=== PATIENT | female | born 1935 | race Caucasian/White ===

== ENCOUNTER 2019-12-10 19:23 | Inpatient (IN) ==
[2019-12-10] MEDS ORDERED: LACTATED RINGERS 1,000 ML IV ONE (19:59)
--- NOTE | 2019-12-10 20:02 | Emergency Department Note ---
HPI General Chief complaint: Shortness of Breath/Dyspnea Stated complaint: fever, SOB Time Seen by Provider: 12/10/19 19:48 Source: patient and RN notes reviewed Mode of arrival: EMS Limitations: no limitations History of Present Illness HPI Narrative: Narrative: This patient has been ill since Monday with fever and chills. She does have a markedly abnormal urine dip in the ER. She has a chronic cough and says her cough and shortness of breath is no different than her baseline and usual. No abdominal pain or chest pain. She does have back pain down low in her back but not over her kidneys. Onset (ago): day(s) Related Data Home Medications Medication Instructions Recorded Confirmed ferrous sulfate 324 mg (65 mg PO 100 Days #100 02/22/16 01/16/19 iron) tablet,delayed release acyclovir 400 mg tablet 400 mg PO BID 12/09/16 01/18/19 bortezomib 3.5 mg solution for See Rx Instructions SUB-Q .COMPLEX 12/09/16 01/18/19 injection carfilzomib 1 dose IV MONTHLY 01/16/19 01/18/19 cholecalciferol (vitamin D3) 1 dose PO DAILY 01/16/19 01/18/19 coenzyme Q10 100 mg capsule 100 mg PO QDAY 01/16/19 01/18/19 cranberry conc-ascorbic acid 1 dose PO DAILYP PRN 01/16/19 01/18/19 d-mannose 1 each PO DAILY 01/16/19 01/18/19 dexamethasone 4 mg tablet 10 mg PO QDAY tab 01/16/19 01/18/19 docusate sodium 100 mg capsule 200 mg PO QDAY 01/16/19 01/18/19 magnesium 200 mg tablet 400 mg PO QDAY tab 01/16/19 01/18/19 multivitamin with minerals 2 tab PO QDAY tab 01/16/19 01/18/19 polyethylene glycol 3350 17 8.5 g PO QDAY PRN 01/16/19 01/18/19 gram/dose oral powder pravastatin 40 mg tablet 40 mg PO QDAY 01/16/19 01/18/19 prochlorperazine maleate 10 mg 10 mg PO QDAY PRN tab 01/16/19 01/18/19 tablet simethicone 1 dose PO DAILYP PRN 01/16/19 01/18/19 zoledronic [id number] 1 dose IV Q3M 01/16/19 01/18/19 Spirometry 1 dose MISC DAILY 01/18/19 01/18/19 nebulizers 01/18/19 01/18/19 Previous Rx's Medication Instructions Recorded potassium chloride 10 mEq 20 meq PO QDAY #60 cap 06/25/15 capsule,extended release trazodone 50 mg tablet 25 mg PO QHS PRN #30 tab 07/10/15 pantoprazole 40 mg tablet,delayed 40 mg PO QDAY #90 tab 01/02/17 release mupirocin 2 % topical ointment 1 applic TOPICAL QDAY #15 g 02/22/17 ipratropium 0.5 mg-albuterol 3 mg 3 ml INHALATION Q6H PRN #30 vial 02/28/17 (2.5 mg base)/3 mL nebulization soln amlodipine 10 mg tablet 10 mg PO QDAY #30 tab 03/27/17 losartan 100 mg tablet 100 mg PO DAILY #90 tab 11/13/17 lorazepam 0.5 mg tablet 0.5 mg PO QID PRN #180 tab 11/17/17 levothyroxine 50 mcg tablet 50 mcg PO QDAY #90 tab 12/15/17 [id number]-LX-ebpirvmtzxb 2.5 5 ml PO TID #180 ml 01/01/18 mg-5 mg-100 mg/5 mL oral liquid sulfamethoxazole 800 1 tab PO BID #20 tab 01/01/18 mg-trimethoprim 160 mg tablet fentanyl 12 mcg/hr transdermal 1 patch TRANSDERMA Q48H #15 patch 02/21/18 patch metronidazole 500 mg PO TID #30 tab 11/21/18 doxycycline hyclate 100 mg PO BID #14 cap 03/10/19 oseltamivir 75 mg PO BID #10 cap 03/10/19 prednisone 20 mg PO DAILY #23 tab 03/10/19 Allergies Allergy/AdvReac Type Severity Reaction Status Date / Time cefdinir Allergy Intermediate nausea Verified 01/18/19 12:53 sulfamethoxazole Allergy Intermediate nausea Verified 01/18/19 12:53 [From Bactrim] trimethoprim [From Bactrim] Allergy Intermediate nausea Verified 01/18/19 12:53 Nortriptyline AdvReac Severe Fatigued Verified 01/18/19 12:53 pantoprazole AdvReac Unknown swelling Verified 01/18/19 12:53 Review of Systems ROS ROS Narrative: Narrative: All systems ED: reviewed and negative except as stated. Constitutional: Reports fever and chills Cardiovascular: Denies chest pain Respiratory: Denies shortness of breath and cough Gastrointestinal: Denies abdominal pain and nausea PFSH Narrative Patient History Narrative: Narrative: Medical/Surgical/Family History All Active Problems (Updated 12/10/19 @ 23:15 by Lino Mcdaniel MD) Acute exacerbation of chronic obstructive airways disease (Acute) Influenza (Acute) Urinary tract infection (Acute) Sepsis (Acute) Macular retinal edema (Chronic) Excess skin of eyelid (Chronic) Scoliosis (Chronic) Disorder of bladder (Chronic) Lower gastrointestinal hemorrhage (Acute) C. 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 Moris Jamison Disorder of bladder (Chronic) due to female genital prolapse Excess skin of eyelid (Chronic) GI bleed (Resolved) Hyperlipidemia (Chronic) Hypertension, essential (Chronic) Hypothyroidism (acquired) (Chronic) Macular puckering of retina (Chronic) 10/11/13 Dr. 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 Moris Jamison Ptosis of eyelid (Resolved) 10/11/13- Dr. 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 Moris Jamison Surgical History History of esophagogastroduodenoscopy (EGD) (Chronic 02/02/17) 12/01/16 Hx of cataract surgery (Resolved) Hx of hysterectomy (Resolved) Family History (Updated 01/16/19 @ 11:34 by Kim Hernandez, RN) Father Acute myocardial infarction Mother Malignant neoplasm of lung Other Diabetes mellitus HTN (hypertension) Social History Smoking Status: Never smoker Alcohol Intake Frequency: holiday/special occasion only Exam Narrative Narrative: Narrative: General Limitations: no limitations Head Head: Present atraumatic, normocephalic and normal inspection Eye Eye: Present normal appearance and EOMI; Absent scleral icterus and conjunctival injection ENT ENT: Present normal exam, normal oropharynx and mucous membranes dry Neck Neck: Present normal inspection and full ROM Chest Chest: Present normal inspection and symmetric chest wall rise Respiratory Respiratory: Present normal lung sounds bilaterally; Absent respiratory distress, rales/crackles and wheezes Cardiovascular Cardiovascular: Present regular rate, normal rhythm and normal heart sounds Adbominal Abdominal: Absent distention and tenderness Extremities Extremities: Present normal inspection and full ROM; Absent pedal edema and pretibial edema Back Back: Present L-S tenderness; Absent CVA tenderness (R) and CVA tenderness (L) Neurological Neurological: Present alert Psychiatric Psychiatric: Present normal affect Skin Skin: Present warm (WNL) and dry; Absent diaphoresis Course Vital Signs Vital signs: Vital Signs Temperature 101.5 F H 12/10/19 19:24 Pulse Rate 139 H 12/10/19 19:24 Respiratory Rate 35 H 12/10/19 19:24 Blood Pressure 159/100 12/10/19 19:24 Pulse Oximetry (%) 92 12/10/19 19:24 Temperature 103.5 F H 12/10/19 21:36 Pulse Rate 96 H 12/10/19 22:45 Respiratory Rate 31 H 12/10/19 22:45 Blood Pressure 107/57 12/10/19 22:45 Pulse Oximetry (%) 89 L 12/10/19 22:45 [facility] MDM Narrative Medical decision making narrative: Narrative: Lab Data Lab results reviewed: Yes I reviewed the patient's lab results. Lab results narrative: Patient has evidence of urosepsis with urinary tract infection and lactic acid of 3.1 Result diagrams: 12/10/19 20:32 12/10/19 20:32 Labs: Lab Results 12/10/19 12/10/19 12/10/19 Range/Units 20:32 20:32 20:32 WBC 3.3 L (4.5-11.0) K/mcL RBC 4.11 (4.00-5.20) M/mcL Hgb 13.6 (12.0-15.0) g/dL Hct 40.5 (36.0-48.0) % MCV 98.5 (80.0-100.0) fL MCH 33.1 (26.0-34.0) pg MCHC 33.6 (31.0-36.0) g/dL RDW 13.0 (11.5-14.5) % Plt Count 117 L (140-440) K/mcL MPV 9.7 (7.4-10.4) fL Neut % (Auto) 96.3 H (38.0-78.0) % Lymph % (Auto) 3.4 L (15.0-49.0) % Bates % (Auto) 0.3 L (1.0-12.0) % Eos % (Auto) 0 (0.0-7.0) % Baso % (Auto) 0 (0.0-2.0) % Lymph # (Auto) 0.11 L (1.50-4.80) K/mcL Bates # (Auto) 0.01 L (0.10-0.90) K/mcL Eos # (Auto) 0 (0.00-0.70) K/mcL Baso # (Auto) 0 (0.00-0.20) K/mcL VBG Lactic Acid 3.1 H (0.5-2.0) mmol/L Sodium 132 L (133-145) mmol/L Potassium 3.5 (3.3-5.1) mmol/L Chloride 98 (96-108) mmol/L Carbon Dioxide 21 L (22-30) mmol/L Anion Gap 13.0 (8.0-16.0) BUN 11 (8-23) mg/dL Creatinine 0.9 (0.6-1.1) mg/dL GFR Calculation 59 Glucose 107 H (70-105) mg/dL Calcium 8.9 (8.6-10.4) mg/dL Total Bilirubin 1.0 (0.1-1.0) mg/dL AST 27 (<32) U/L ALT 19 (<40) U/L Alkaline Phosphatase 105 (39-117) U/L Total Protein 6.7 (5.9-8.4) gm/dL Albumin 4.1 (3.2-5.2) gm/dL Globulin 2.6 (2.2-3.7) gm/dL Albumin/Globulin Ratio 1.6 (1.0-2.3) Urine Color Urine Appearance (Clear) Urine pH (5.0-9.0) Ur Specific [place] (1.000-1.035) Urine Protein (Negative) mg/dL Urine Glucose (UA) (Negative) mg/dL Urine Ketones (Negative) mg/dL Urine Occult Blood (Negative) mg/dL Urine Nitrate (Negative) Urine Bilirubin (Negative) mg/dL Urine Urobilinogen mg/dL Ur Leukocyte Esterase (Negative) /ug Urine RBC (0-1) /hpf Urine WBC (0-4) /hpf Ur Squamous Epith Cells (0-4) /hpf Urine Bacteria (0) /hpf Urine Mucus (None) /hpf Ur Culture Indicated? Abs Neutrophil Control 3.15 (1.80-8.00) K/mcL 12/10/19 Range/Units 21:27 WBC (4.5-11.0) K/mcL RBC (4.00-5.20) M/mcL Hgb (12.0-15.0) g/dL Hct (36.0-48.0) % MCV (80.0-100.0) fL MCH (26.0-34.0) pg MCHC (31.0-36.0) g/dL RDW (11.5-14.5) % Plt Count (140-440) K/mcL MPV (7.4-10.4) fL Neut % (Auto) (38.0-78.0) % Lymph % (Auto) (15.0-49.0) % Bates % (Auto) (1.0-12.0) % Eos % (Auto) (0.0-7.0) % Baso % (Auto) (0.0-2.0) % Lymph # (Auto) (1.50-4.80) K/mcL Bates # (Auto) (0.10-0.90) K/mcL Eos # (Auto) (0.00-0.70) K/mcL Baso # (Auto) (0.00-0.20) K/mcL VBG Lactic Acid (0.5-2.0) mmol/L Sodium (133-145) mmol/L Potassium (3.3-5.1) mmol/L Chloride (96-108) mmol/L Carbon Dioxide (22-30) mmol/L Anion Gap (8.0-16.0) BUN (8-23) mg/dL Creatinine (0.6-1.1) mg/dL GFR Calculation Glucose (70-105) mg/dL Calcium (8.6-10.4) mg/dL Total Bilirubin (0.1-1.0) mg/dL AST (<32) U/L ALT (<40) U/L Alkaline Phosphatase (39-117) U/L Total Protein (5.9-8.4) gm/dL Albumin (3.2-5.2) gm/dL Globulin (2.2-3.7) gm/dL Albumin/Globulin Ratio (1.0-2.3) Urine Color Yellow Urine Appearance Hazy A (Clear) Urine pH 7.0 (5.0-9.0) Ur Specific [place] 1.011 (1.000-1.035) Urine Protein 30 A (Negative) mg/dL Urine Glucose (UA) Negative (Negative) mg/dL Urine Ketones Negative (Negative) mg/dL Urine Occult Blood 0.20 (Negative) mg/dL Urine Nitrate Negative (Negative) Urine Bilirubin Negative (Negative) mg/dL Urine Urobilinogen Negative mg/dL Ur Leukocyte Esterase 500 A (Negative) /ug Urine RBC 9 H (0-1) /hpf Urine WBC 99 H (0-4) /hpf Ur Squamous Epith Cells < 1 (0-4) /hpf Urine Bacteria Few A (0) /hpf Urine Mucus Few A (None) /hpf Ur Culture Indicated? yes Abs Neutrophil Control (1.80-8.00) K/mcL Radiology Data Radiology results reviewed: Yes I reviewed the patient's radiology results. Radiology results narrative: There may be an infiltrate left lower lobe Discharge Plan Patient/Caregiver Discharge Instructions Pt seen by [employer]PER[facility]/PA only: No Clinical Impression: Urinary tract infection, Sepsis Patient Disposition: Xfer As Inpt ([facility]) Follow up with: Omer Malagon MD [Primary Care Provider] - Prescriptions: No Action potassium chloride 10 mEq capsule, extended release 20 meq PO QDAY Qty: 60 RF: 12 pantoprazole 40 mg tablet,delayed release (DR/EC) 40 mg PO QDAY Qty: 90 RF: 3 losartan 100 mg tablet 100 mg PO DAILY Qty: 90 RF: 3 lorazepam 0.5 mg tablet 0.5 mg PO QID PRN (Reason: anxiety) Qty: 180 RF: 5 levothyroxine 50 mcg tablet 50 mcg PO QDAY Qty: 90 RF: 3 fentanyl 12 mcg/hr patch 72 hour 1 patch TRANSDERMA Q48H Qty: 15 RF: 0 trazodone 50 mg tablet 25 mg PO QHS PRN (Reason: insomnia) Qty: 30 RF: 2 ferrous sulfate 324 mg (65 mg iron) tablet,delayed release (DR/EC) PO 100 Days Qty: 100 RF: 0 bortezomib 3.5 mg recon soln See Rx Instructions SUB-Q .COMPLEX RF: 0 acyclovir 400 mg tablet 400 mg PO BID RF: 0 dexamethasone 4 mg tablet 10 mg PO QDAY RF: 0 amlodipine 10 mg tablet 10 mg PO QDAY Qty: 30 RF: 11 mupirocin 2 % ointment 1 applic TOPICAL QDAY Qty: 15 RF: 0 ipratropium-albuterol 0.5 mg-3 mg(2.5 mg base)/3 mL solution for nebulization 3 ml INHALATION Q6H PRN (Reason: wheezing) Qty: 30 RF: 2 sulfamethoxazole-trimethoprim 800-160 mg tablet 1 tab PO BID Qty: 20 RF: 0 [id number]-[id number] [Mucinex Fast-Max Congest-Cough] 2.5-5-100 mg/5 mL liquid 5 ml PO TID Qty: 180 RF: 0 metronidazole 500 MG tablet 500 mg PO TID Qty: 30 RF: 0 (DME) nebulizers 1 EACH misc 0 dose .Route .MEDSUPPLY RF: 0 Spirometry 1 dose MISC DAILY RF: 0 doxycycline hyclate 100 MG capsule 100 mg PO BID Qty: 14 RF: 0 oseltamivir 75 MG capsule 75 mg PO BID Qty: 10 RF: 0 prednisone 20 MG tablet 20 mg PO DAILY Qty: 23 RF: 0 prochlorperazine maleate 10 mg tablet 10 mg PO QDAY PRN (Reason: Nausea) RF: 0 carfilzomib 1 dose IV MONTHLY RF: 0 zoledronic djtm-ejmslqhv-dmoku 1 dose IV Q3M RF: 0 pravastatin 40 mg tablet 40 mg PO QDAY RF: 0 coenzyme Q10 [CoQ-10] 100 mg capsule 100 mg PO QDAY RF: 0 docusate sodium [Stool Softener] 100 mg capsule 200 mg PO QDAY RF: 0 cholecalciferol (vitamin D3) 1 dose PO DAILY RF: 0 magnesium 200 mg tablet 400 mg PO QDAY RF: 0 multivitamin with minerals tablet 2 tab PO QDAY RF: 0 d-mannose powder 1 each PO DAILY RF: 0 cranberry conc-ascorbic acid 1 dose PO DAILYP PRN (Reason: Pain) RF: 0 polyethylene glycol 3350 [Miralax] 17 gram/dose powder 8.5 g PO QDAY PRN (Reason: Constipation) RF: 0 simethicone 1 dose PO DAILYP PRN (Reason: Abdominal Distention) RF: 0
[2019-12-10] MEDS ORDERED: cefTRIAXone 1 GM VIAL IV ONE (20:08)
[2019-12-10] MEDS ORDERED: ACETAMINOPHEN 325 MG TABLET PO ONE (20:08)
[2019-12-10 21:46] LABS: Basophils # (Auto) 0 K/mcL (0.00-0.20); Basophils % (Auto) 0 % (0.0-2.0); Eosinophils # (Auto) 0 K/mcL (0.00-0.70); Eosinophils % (Auto) 0 % (0.0-7.0); Hematocrit 40.5 % (36.0-48.0); Hemoglobin 13.6 g/dL (12.0-15.0); Lymphocytes # (Auto) 0.11 K/mcL (1.50-4.80); Lymphocytes % (Auto) 3.4 % (15.0-49.0); Mean Cell Volume 98.5 fL (80.0-100.0); Mean Corpuscular HGB Conc 33.6 g/dL (31.0-36.0); Mean Platelet Volume 9.7 fL (7.4-10.4); Monocytes # (Auto) 0.01 K/mcL (0.10-0.90); Monocytes % (Auto) 0.3 % (1.0-12.0); Neutrophils % (Auto) 96.3 % (38.0-78.0); Platelet Count 117 K/mcL (140-440); RBC 4.11 M/mcL (4.00-5.20); WBC 3.3 K/mcL (4.5-11.0)
[2019-12-10 21:57] LABS: Appearance,Urine HAZY (Clear); Bacteria,Urine FEW /hpf (0); Bilirubin,Urine Negative (Negative); Color,Urine YELLOW; Culture Indicated,Urine yes; Glucose,Urine (UA) Negative (Negative); Ketones,Urine Negative (Negative); Leukocyte Esterase,Urine 500 /ug (Negative); Mucus,Urine FEW /hpf; Nitrate,Urine Negative (Negative); Protein,Urine 30 mg/dL (Negative); Specific Gravity,Urine 1.011 (1.000-1.035); Urine RBC 9 /hpf (0-1); Urine Squamous Epithelial Cell < 1 /hpf (0-4); Urine WBC 99 /hpf (0-4); Urobilinogen,Urine Negative
[2019-12-10 22:02] LABS: ALT/SGPT 19 U/L (<40); AST/SGOT 27 U/L (<32); Albumin 4.1 gm/dL (3.2-5.2); Albumin/Globulin Ratio 1.6 (1.0-2.3); Alkaline Phosphatase 105 U/L (39-117); Blood Urea Nitrogen 11 mg/dL (8-23); Calcium 8.9 mg/dL (8.6-10.4); Carbon Dioxide 21 mmol/L (22-30); Chloride 98 mmol/L (96-108); Globulin 2.6 gm/dL (2.2-3.7); Glomerular Filtration Rate 59; Glucose 107 mg/dL (70-105)
[2019-12-10] MEDS ORDERED: LEVOFLOXACIN 750 MG/150 ML BAG IV ONE (23:08)
[2019-12-10] MEDS ORDERED: LACTATED RINGERS 1,000 ML IV SCH (23:15)
[2019-12-10] MEDS ORDERED: 0.9 % SODIUM CHLORIDE 250 ML IV SCH (23:45)
[2019-12-11] MEDS: NOREPINEPHRINE BITARTRATE 16 MG in 0.9 % SODIUM CHLORIDE 234 ML IV SCH (00:01)
[2019-12-11] MEDS: 0.9 % SODIUM CHLORIDE 250 ML IV SCH ×2 (00:40→12:40)
[2019-12-11] MEDS ORDERED: cefTRIAXone 1 GM VIAL IV SCH (07:45)
--- NOTE | 2019-12-11 07:45 | Internal Med History&Physical ---
HPI History of Present Illness Patient information: Note initiated : 12/11/19 at 7:39 am Service Date, if different from initiated Date: [] Patient: Daksha Rodriguez 84 y/o F admitted on 12/11/19 for fever, SOB. Chief Complaint: [] History of present illness: Ms. Rodriguez is a 84 year old F Patient presents to the ED with fever and chills. She does have a cough and shortness of breath but states this is chronic and stable. In the ED she evaluated she was hypotensive initially with a fever. Lactate. She is given IV fluids with resolution of her hypotension. Source appears to be tract with UTI. ?Pulm. Patient states Monday that she had fevers and chills. She called Monday morning to oncologist because she was supposed to get "chemo" for multiple myeloma and they decided to wait on her chemo that was scheduled for Monday. She felt better on Monday she felt tired and then in the afternoon she developed fevers and chills called the ambulance. In the ER she was evaluated and work-up was concerning for urinary tract infection with sepsis and she actually required levo fed. Chest x-ray bilateral infiltrates but she denies any cough above baseline. She says she has a chronic shortness of breath and cough but she says they are no different than usual. Feels tired and weak but otherwise no other complaints. Review of Systems: Positive as above. Denies headache/nausea/vomiting/chest or abdominal pain//maru rrhea. Remaining 10 point review of system reviewed negative PFSH PFSH All Active Problems (Updated 12/10/19 @ 23:15 by Lino Mcdaniel MD) Acute exacerbation of chronic obstructive airways disease (Acute) Influenza (Acute) Urinary tract infection (Acute) Sepsis (Acute) Macular retinal edema (Chronic) Excess skin of eyelid (Chronic) Scoliosis (Chronic) Disorder of bladder (Chronic) Lower gastrointestinal hemorrhage (Acute) C. 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 Moris Jamison Disorder of bladder (Chronic) due to female genital prolapse Excess skin of eyelid (Chronic) GI bleed (Resolved) Hyperlipidemia (Chronic) Hypertension, essential (Chronic) Hypothyroidism (acquired) (Chronic) Macular puckering of retina (Chronic) 10/11/13 Dr. 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 Moris Jamison Ptosis of eyelid (Resolved) 10/11/13- Dr. 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 Moris Jamison Surgical History History of esophagogastroduodenoscopy (EGD) (Chronic 02/02/17) 12/01/16 Hx of cataract surgery (Resolved) Hx of hysterectomy (Resolved) Family History (Updated 01/16/19 @ 11:34 by Kim Hernandez, RN) Father Acute myocardial infarction Mother Malignant neoplasm of lung Other Diabetes mellitus HTN (hypertension) Social History (Updated 01/16/19 @ 12:01 by Kj Estrella MD) household members: alone occupational status: unemployed smoking status: Never smoker alcohol intake frequency: holiday/special occasion only MEDS/ALLERGIES Home Medications and Allergies Home Medications Medication Instructions Recorded Confirmed Type potassium chloride 10 mEq 20 meq PO QDAY #60 cap 06/25/15 01/18/19 Rx capsule,extended release trazodone 50 mg tablet 25 mg PO QHS PRN #30 tab 07/10/15 01/18/19 Rx ferrous sulfate 324 mg (65 mg PO 100 Days #100 02/22/16 01/16/19 History iron) tablet,delayed release acyclovir 400 mg tablet 400 mg PO BID 12/09/16 01/18/19 History bortezomib 3.5 mg solution for See Rx Instructions SUB-Q .COMPLEX 12/09/16 01/18/19 History injection pantoprazole 40 mg tablet,delayed 40 mg PO QDAY #90 tab 01/02/17 01/18/19 Rx release mupirocin 2 % topical ointment 1 applic TOPICAL QDAY #15 g 02/22/17 01/18/19 Rx ipratropium 0.5 mg-albuterol 3 mg 3 ml INHALATION Q6H PRN #30 vial 02/28/17 01/18/19 Rx (2.5 mg base)/3 mL nebulization soln amlodipine 10 mg tablet 10 mg PO QDAY #30 tab 03/27/17 01/18/19 Rx losartan 100 mg tablet 100 mg PO DAILY #90 tab 11/13/17 01/18/19 Rx lorazepam 0.5 mg tablet 0.5 mg PO QID PRN #180 tab 11/17/17 01/18/19 Rx levothyroxine 50 mcg tablet 50 mcg PO QDAY #90 tab 12/15/17 01/18/19 Rx kpfyumoteyalp-RG-xbnxuuoeiww 2.5 5 ml PO TID #180 ml 01/01/18 01/18/19 Rx mg-5 mg-100 mg/5 mL oral liquid sulfamethoxazole 800 1 tab PO BID #20 tab 01/01/18 01/18/19 Rx mg-trimethoprim 160 mg tablet fentanyl 12 mcg/hr transdermal 1 patch TRANSDERMA Q48H #15 patch 02/21/18 01/18/19 Rx patch metronidazole 500 mg PO TID #30 tab 11/21/18 01/18/19 Rx carfilzomib 1 dose IV MONTHLY 01/16/19 01/18/19 History cholecalciferol (vitamin D3) 1 dose PO DAILY 01/16/19 01/18/19 History coenzyme Q10 100 mg capsule 100 mg PO QDAY 01/16/19 01/18/19 History cranberry conc-ascorbic acid 1 dose PO DAILYP PRN 01/16/19 01/18/19 History d-mannose 1 each PO DAILY 01/16/19 01/18/19 History dexamethasone 4 mg tablet 10 mg PO QDAY tab 01/16/19 01/18/19 History docusate sodium 100 mg capsule 200 mg PO QDAY 01/16/19 01/18/19 History magnesium 200 mg tablet 400 mg PO QDAY tab 01/16/19 01/18/19 History multivitamin with minerals 2 tab PO QDAY tab 01/16/19 01/18/19 History polyethylene glycol 3350 17 8.5 g PO QDAY PRN 01/16/19 01/18/19 History gram/dose oral powder pravastatin 40 mg tablet 40 mg PO QDAY 01/16/19 01/18/19 History prochlorperazine maleate 10 mg 10 mg PO QDAY PRN tab 01/16/19 01/18/19 History tablet simethicone 1 dose PO DAILYP PRN 01/16/19 01/18/19 History zoledronic hlsc-cpgjktnh-nfkga 1 dose IV Q3M 01/16/19 01/18/19 History Spirometry 1 dose MISC DAILY 01/18/19 01/18/19 History nebulizers 01/18/19 01/18/19 History doxycycline hyclate 100 mg PO BID #14 cap 03/10/19 Rx oseltamivir 75 mg PO BID #10 cap 03/10/19 Rx prednisone 20 mg PO DAILY #23 tab 03/10/19 Rx Allergies Allergy/AdvReac Type Severity Reaction Status Date / Time Nortriptyline AdvReac Severe Fatigued Verified 01/18/19 12:53 cefdinir AdvReac Mild nausea Verified 12/11/19 06:40 sulfamethoxazole AdvReac Mild nausea Verified 12/11/19 06:40 [From Bactrim] trimethoprim [From Bactrim] AdvReac Mild nausea Verified 12/11/19 06:40 pantoprazole AdvReac Unknown swelling Verified 01/18/19 12:53 EXAM Constitutional Vitals: Temp Pulse Resp BP Pulse Ox 98.7 F 87 23 H 138/77 95 12/11/19 04:01 12/11/19 04:10 12/11/19 04:10 12/11/19 04:01 12/11/19 04:10 Exam: General: Alert, Awake, No acute Distress Eyes/N/T: EOMI, PERRL, Head/Neck: neck supple, normocephalic atraumatic CV: RRR, No murmurs, normal s1/s2 Pulm: Clear b/l, no wheezing/rhonchi/rales Abd: soft, nontender, +BS x4 Ext: no clubbing/cyanosis/edema Neuro: Alert, no focal deficits, moves all extremities, CN 2-12 grossly intact, symmetrical strength b/l upper/lower, sensations intact b/l upper/lower Skin: warm/dry DATA Data Completed and Pending Labs: Labs from last 24 hours 12/11/19 12/11/19 12/10/19 04:39 04:39 21:27 WBC Pending RBC Pending Hgb Pending Hct Pending MCV Pending MCH Pending MCHC Pending RDW Pending Plt Count Pending MPV Pending Neut % (Auto) Pending Lymph % (Auto) [place] % (Auto) Eos % (Auto) Baso % (Auto) Lymph # (Auto) [place] # (Auto) Eos # (Auto) Baso # (Auto) VBG Lactic Acid Sodium Pending Potassium Pending Chloride Pending Carbon Dioxide Pending Anion Gap Pending BUN Pending Creatinine Pending GFR Calculation Pending Glucose Pending Uric Acid Pending Calcium Pending Phosphorus Pending Magnesium Pending Total Bilirubin Pending Direct Bilirubin Pending GGT Pending AST Pending ALT Pending Alkaline Phosphatase Pending Lactate Dehydrogenase Pending Total Protein Pending Albumin Pending Globulin Pending Albumin/Globulin Ratio Pending Triglycerides Pending Urine Color Yellow Urine Appearance Hazy A Urine pH 7.0 Ur Specific [place] 1.011 Urine Protein 30 A Urine Glucose (UA) Negative Urine Ketones Negative Urine Occult Blood 0.20 Urine Nitrate Negative Urine Bilirubin Negative Urine Urobilinogen Negative Ur Leukocyte Esterase 500 A Urine RBC 9 H Urine WBC 99 H Ur Squamous Epith Cells < 1 Urine Bacteria Few A Urine Mucus Few A Ur Culture Indicated? yes Abs Neutrophil Control 12/10/19 12/10/19 12/10/19 20:32 20:32 20:32 WBC 3.3 L RBC 4.11 Hgb 13.6 Hct 40.5 MCV 98.5 MCH 33.1 MCHC 33.6 RDW 13.0 Plt Count 117 L MPV 9.7 Neut % (Auto) 96.3 H Lymph % (Auto) 3.4 L [place] % (Auto) 0.3 L Eos % (Auto) 0 Baso % (Auto) 0 Lymph # (Auto) 0.11 L [place] # (Auto) 0.01 L Eos # (Auto) 0 Baso # (Auto) 0 VBG Lactic Acid 3.1 H Sodium 132 L Potassium 3.5 Chloride 98 Carbon Dioxide 21 L Anion Gap 13.0 BUN 11 Creatinine 0.9 GFR Calculation 59 Glucose 107 H Uric Acid Calcium 8.9 Phosphorus Magnesium Total Bilirubin 1.0 Direct Bilirubin GGT AST 27 ALT 19 Alkaline Phosphatase 105 Lactate Dehydrogenase Total Protein 6.7 Albumin 4.1 Globulin 2.6 Albumin/Globulin Ratio 1.6 Triglycerides Urine Color Urine Appearance Urine pH Ur Specific [place] Urine Protein Urine Glucose (UA) Urine Ketones Urine Occult Blood Urine Nitrate Urine Bilirubin Urine Urobilinogen Ur Leukocyte Esterase Urine RBC Urine WBC Ur Squamous Epith Cells Urine Bacteria Urine Mucus Ur Culture Indicated? 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 Perry on active therapy P: -IVF -Rocephin/azithro pending urine/blood cultures -IS -Clarify home medications -pT/OT -CM for placement -ppx: Lovenox/home PPI DNR Time Spent With Patient Time: Total time spent is greater than 50% in coordination of care (as documented) at patient's floor/unit and/or counseling patient: QUALITY VTE Deep Vein Thrombosis/Pulmonary Embolism Present on Admission: No
--- NOTE | 2019-12-11 07:57 | XRay Report ---
HISTORY: Fever and cough FINDINGS: Moderate generalized alveolar infiltrates are present throughout both lungs affecting the left side worse than right. This is superimposed upon underlying pulmonary fibrosis. Lung volumes are normal. No pleural effusion is present. The heart size is within upper limits of normal. Pulmonary vessels cannot be evaluated due to the infiltrates. There is a large air-filled retrocardiac hiatus hernia which has enlarged since 03/21/19. IMPRESSION: Widespread bilateral pneumonia. Superimposed pulmonary vascular congestion cannot be excluded. Interpreted and Authenticated by: Moris Maxwell 12/11/19
[2019-12-11] MEDS ORDERED: IPRATROPIUM/ALBUTEROL 3 ML AMPUL.NEB NEB PRN (08:27)
[2019-12-11] MEDS ORDERED: POTASSIUM CHLORIDE 40 MEQ in DEXTROSE 5% IN WATER 500 ML IV PRN (08:27)
[2019-12-11] MEDS ORDERED: ONDANSETRON 4 MG/2 ML VIAL IV PRN (08:27)
[2019-12-11] MEDS ORDERED: SENNOSIDES 1 TABLET PO PRN (08:27)
[2019-12-11] MEDS ORDERED: MAGNESIUM SULFATE 2 GM/50 ML BAG IV PRN (08:27)
[2019-12-11] MEDS ORDERED: POTASSIUM CHLORIDE 20 MEQ TABLET PO PRN ×2 (08:27)
[2019-12-11] MEDS: AZITHROMYCIN 500 MG in DEXTROSE 5% IN WATER 250 ML IV SCH (09:00)
[2019-12-11] MEDS ORDERED: cefTRIAXone 2 GM in DEXTROSE 5% IN WATER 50 ML IV SCH (09:00)
[2019-12-11 09:21] LABS: Basophils # (Auto) 0.05 K/mcL (0.00-0.20); Basophils % (Auto) 0.1 % (0.0-2.0); Eosinophils # (Auto) 0.21 K/mcL (0.00-0.70); Eosinophils % (Auto) 0.6 % (0.0-7.0); Hematocrit 37.5 % (36.0-48.0); Hemoglobin 12.7 g/dL (12.0-15.0); Lymphocytes # (Auto) 0.25 K/mcL (1.50-4.80); Lymphocytes % (Auto) 0.7 % (15.0-49.0); Mean Cell Volume 97.2 fL (80.0-100.0); Mean Corpuscular HGB Conc 33.9 g/dL (31.0-36.0); Mean Platelet Volume 9.8 fL (7.4-10.4); Monocytes # (Auto) 1.63 K/mcL (0.10-0.90); Monocytes % (Auto) 4.8 % (1.0-12.0); Neutrophils % (Auto) 93.8 % (38.0-78.0); Platelet Count 188 K/mcL (140-440); RBC 3.86 M/mcL (4.00-5.20); Red Cell Distribution Width 13.2 % (11.5-14.5); WBC 33.8 K/mcL (4.5-11.0)
--- NOTE | 2019-12-11 09:39 | XRay Report ---
HISTORY: Follow-up pulmonary infiltrates, fever, shortness of breath FINDINGS: There are moderate generalized alveolar opacities throughout both lungs. There has been mild improvement since yesterday. No pleural effusion is present. Heart is borderline enlarged. Patient has a moderate size retrocardiac hiatus hernia which has diminished in volume since yesterday. A moderate dextroscoliotic curvature is present in the lower thoracic spine.. IMPRESSION: Improving bilateral pulmonary infiltrates Interpreted and Authenticated by: Moris Maxwell 12/11/19
[2019-12-11] MEDS ORDERED: PIPERACILLIN SODIUM/TAZOBACTAM 3.375 GM in DEXTROSE 5% IN WATER 50 ML IV SCH (10:00)
[2019-12-11] MEDS: PIPERACILLIN SODIUM/TAZOBACTAM 2.25 GM in DEXTROSE 5% IN WATER 50 ML IV SCH ×3 (10:00→17:38)
[2019-12-11] MEDS: ENOXAPARIN 30 MG/0.3 ML SYRINGE SQ SCH (10:20)
[2019-12-11] MEDS: DOCUSATE SODIUM 100 MG CAPSULE PO SCH ×2 (10:21→21:09)
[2019-12-11] MEDS: ACETAMINOPHEN 325 MG TABLET PO PRN (10:21)
[2019-12-11 11:34] LABS: Band Neutrophils % 2 % (0-10); Lymphocytes % 5 % (15-49); Monocytes % (Manual) 6 % (1-12); Platelet Estimate NORMAL (Normal); RBC Morphology NORMAL (Normal); Segmented Neutrophils % 87 % (38-78)
[2019-12-11] MEDS: 0.9 % SODIUM CHLORIDE 10 ML SYRINGE IV SCH ×2 (12:41→21:10)
[2019-12-11 16:51] LABS: ALT/SGPT 23 U/L (<40); AST/SGOT 39 U/L (<32); Albumin 3.4 gm/dL (3.2-5.2); Albumin/Globulin Ratio 1.3 (1.0-2.3); Alkaline Phosphatase 107 U/L (39-117); Bilirubin,Direct 0.4 mg/dL (<0.3); Bilirubin,Total 0.7 mg/dL (0.1-1.0); Blood Urea Nitrogen 10 mg/dL (8-23); Calcium 8.7 mg/dL (8.6-10.4); Carbon Dioxide 15 mmol/L (22-30); Chloride 104 mmol/L (96-108); Globulin 2.6 gm/dL (2.2-3.7); Glomerular Filtration Rate 68; Glucose 95 mg/dL (70-105); Lactate Dehydrogenase 438 U/L (135-225); Phosphorous 3.1 mg/dL (2.5-4.5); Triglycerides 113 mg/dL (<150); Uric Acid 2.9 mg/dL (2.5-8.0)
[2019-12-12] MEDS: NOREPINEPHRINE BITARTRATE 16 MG in 0.9 % SODIUM CHLORIDE 234 ML IV SCH (00:11)
[2019-12-12] MEDS: PIPERACILLIN SODIUM/TAZOBACTAM 2.25 GM in DEXTROSE 5% IN WATER 50 ML IV SCH ×4 (00:11→17:45)
[2019-12-12] MEDS ORDERED: LORazepam 0.5 MG TABLET PO PRN (02:31)
[2019-12-12] MEDS ORDERED: LORazepam 0.5 MG TABLET ONE (02:38)
[2019-12-12] MEDS: 0.9 % SODIUM CHLORIDE 250 ML IV SCH (02:38)
[2019-12-12] MEDS: 0.9 % SODIUM CHLORIDE 10 ML SYRINGE IV SCH ×3 (05:51→20:39)
[2019-12-12 06:39] LABS: Basophils # (Auto) 0.02 K/mcL (0.00-0.20); Basophils % (Auto) 0.1 % (0.0-2.0); Eosinophils # (Auto) 0.05 K/mcL (0.00-0.70); Eosinophils % (Auto) 0.3 % (0.0-7.0); Hematocrit 34.4 % (36.0-48.0); Hemoglobin 11.5 g/dL (12.0-15.0); Lymphocytes # (Auto) 0.41 K/mcL (1.50-4.80); Lymphocytes % (Auto) 2.8 % (15.0-49.0); Mean Corpuscular HGB Conc 33.4 g/dL (31.0-36.0); Monocytes # (Auto) 1.18 K/mcL (0.10-0.90); Monocytes % (Auto) 8.2 % (1.0-12.0); Neutrophils % (Auto) 88.6 % (38.0-78.0); Platelet Count 131 K/mcL (140-440); RBC 3.51 M/mcL (4.00-5.20); WBC 14.4 K/mcL (4.5-11.0)
[2019-12-12 07:09] LABS: ALT/SGPT 18 U/L (<40); AST/SGOT 24 U/L (<32); Albumin 2.7 gm/dL (3.2-5.2); Albumin/Globulin Ratio 1.1 (1.0-2.3); Alkaline Phosphatase 85 U/L (39-117); Bilirubin,Direct < 0.2 mg/dL (<0.3); Bilirubin,Total 0.5 mg/dL (0.1-1.0); Blood Urea Nitrogen 11 mg/dL (8-23); Carbon Dioxide 21 mmol/L (22-30); Chloride 100 mmol/L (96-108); Globulin 2.4 gm/dL (2.2-3.7); Glomerular Filtration Rate 80; Glucose 96 mg/dL (70-105); Lactate Dehydrogenase 199 U/L (135-225); Phosphorous 2.1 mg/dL (2.5-4.5); Triglycerides 120 mg/dL (<150); Uric Acid 2.1 mg/dL (2.5-8.0)
[2019-12-12] MEDS ORDERED: SODIUM PHOSPHATE 15 MMOL in DEXTROSE 5% IN WATER 250 ML IV ONE (09:00)
[2019-12-12] MEDS: DOCUSATE SODIUM 100 MG CAPSULE PO SCH ×2 (09:28→20:38)
[2019-12-12] MEDS: ENOXAPARIN 30 MG/0.3 ML SYRINGE SQ SCH (09:33)
[2019-12-12] MEDS: AZITHROMYCIN 500 MG in DEXTROSE 5% IN WATER 250 ML IV SCH (09:34)
[2019-12-12] MEDS: ACETAMINOPHEN 325 MG TABLET PO PRN (10:05)
[2019-12-12] MEDS ORDERED: 0.9 % SODIUM CHLORIDE 250 ML IV SCH ×2 (10:46)
[2019-12-12] MEDS ORDERED: ONDANSETRON 4 MG/2 ML VIAL IV PRN (10:46)
[2019-12-12] MEDS ORDERED: POTASSIUM CHLORIDE 20 MEQ TABLET PO PRN ×2 (10:46)
[2019-12-12] MEDS ORDERED: POTASSIUM CHLORIDE 40 MEQ in DEXTROSE 5% IN WATER 500 ML IV PRN (10:46)
[2019-12-12] MEDS ORDERED: IPRATROPIUM/ALBUTEROL 3 ML AMPUL.NEB NEB PRN (10:46)
[2019-12-12] MEDS ORDERED: MAGNESIUM SULFATE 2 GM/50 ML BAG IV PRN (10:46)
[2019-12-12] MEDS ORDERED: SENNOSIDES 1 TABLET PO PRN (10:46)
[2019-12-12] MEDS ORDERED: ACETAMINOPHEN 325 MG TABLET PO PRN (10:46)
[2019-12-12] MEDS ORDERED: fentaNYL 12 MCG PATCH TOPICAL ONE (19:38)
--- NOTE | 2019-12-12 20:10 | Internal Med Progress Note ---
SUBJECTIVE Subjective Patient information: Note initiated : 12/12/19 at 8:07 pm Service Date, if different from initiated Date: [] Patient: Daksha Rodriguez 84 y/o F admitted on 12/11/19 for fever, SOB. Chief Complaint: [] Ms. Rodriguez is a 84 year old F Patient presents to the ED with fever and chills. She does have a cough and shortness of breath but states this is chronic and stable. In the ED she evaluated she was hypotensive initially with a fever. Lactate. She is given IV fluids with resolution of her hypotension. Source appears to be tract with UTI. ?Pulm. Patient states Monday that she had fevers and chills. She called Monday morning to oncologist because she was supposed to get "chemo" for multiple myeloma and they decided to wait on her chemo that was scheduled for Monday. She felt better on Monday she felt tired and then in the afternoon she developed fevers and chills called the ambulance. In the ER she was evaluated and work-up was concerning for urinary tract infection with sepsis and she actually required levo fed. Chest x-ray bilateral infiltrates but she denies any cough above baseline. She says she has a chronic shortness of breath and cough but she says they are no different than usual. Feels tired and weak but otherwise no other complaints. 12/11 Patient does not have any new complaints. Denies fever, chills, nausea or vomit ing. Temperature 99.4 this evening White blood cells went down to 14.4 from 33.8 yesterday Platelets 131 Sodium 132 Phosphorus 2.1 Blood culture showed gram-negative bacilli 2 out of 2 bottles. Sensitivity pending. Continue Zosyn Discontinued Zithromax Review of Systems: Positive as above. Denies headache/nausea/vomiting/chest or abdominal pain//diarrhea. Remaining 10 point review of system reviewed negative Constitutional Vitals: Vital Signs Temp Pulse Resp BP Pulse Ox 99.4 F H 88 18 131/80 95 12/12/19 18:37 12/12/19 18:37 12/12/19 18:37 12/12/19 18:37 12/12/19 18:37 Period Temp Pulse Resp BP Sys/Pal Pulse Ox Last 24 Hr 98.7 F-99.7 F 75-88 13-27 101-150/57-84 91-98 Intake and Output 12/12/19 12/12/19 12/12/19 05:59 13:59 21:59 Intake Total 590 810 470 Output Total 320 450 Balance 270 810 20 Weight 42.411 kg Patient Weight 12/13/19 05:59 Weight 42.411 kg Intake & Output: Intake & Output 12/12/19 12/12/19 12/12/19 05:59 13:59 21:59 Intake Total 590 810 470 Output Total 320 450 Balance 270 810 20 Weight 42.411 kg Intake: IV 50 350 50 Zithromax 500 mg In Dextrose 5% 250 in Water 250 ml @ 250 mls/hr IV DAILY [facility] Rx#:[id number] Zosyn 2.25 gm In Dextrose 5% in 50 100 50 Water 50 ml @ 100 mls/hr IV Q6H [facility] Rx#:[id number] Oral 540 460 420 Output: Void Amount 320 450 Other: Meal Dinner Breakfast Dinner Percent of Meal Consumed 50% 100% 25% Feeding Ability Independent Independent Urine Appearance Clear Clear Urine Color Dark Yellow Pale Urine Odor Normal Stool Size Smear Stool Color Brown Stool Consistency Soft Loose Additional findings Additional findings: General: Alert, Awake, No acute Distress Eyes/N/T: EOMI, PERRL, Head/Neck: neck supple, normocephalic atraumatic CV: RRR, No murmurs, normal s1/s2 Pulm: Clear b/l, no wheezing/rhonchi/rales Abd: soft, nontender, +BS x4 Ext: no clubbing/cyanosis/edema Neuro: Alert, no focal deficits, moves all extremities, CN 2-12 grossly intact, symmetrical strength b/l upper/lower, sensations intact b/l upper/lower Skin: warm/dry OBJ DATA Labs CBC & Chem 7: 12/12/19 05:02 12/12/19 05:02 Labs: Abnormal Lab Results 12/12/19 12/12/19 12/11/19 05:02 05:02 04:39 WBC 14.4 H RBC 3.51 L Hgb 11.5 L Hct 34.4 L Plt Count 131 L Neut % (Auto) 88.6 H Lymph % (Auto) 2.8 L [place] % (Auto) Lymph # (Auto) 0.41 L [place] # (Auto) 1.18 H Seg Neutrophils % Lymphocytes % VBG Lactic Acid Sodium 132 L Carbon Dioxide 21 L Anion Gap Glucose Uric Acid 2.1 L Calcium 8.0 L Phosphorus 2.1 L Direct Bilirubin GGT 44 H AST Lactate Dehydrogenase C-Reactive Protein 20.70 H Total Protein 5.1 L Albumin 2.7 L Procalcitonin Urine Appearance Urine Protein Ur Leukocyte Esterase Urine RBC Urine WBC Urine Bacteria Urine Mucus Abs Neutrophil Control 12.75 H 12/11/19 12/11/19 12/11/19 04:39 04:39 04:39 WBC RBC Hgb Hct Plt Count Neut % (Auto) Lymph % (Auto) [place] % (Auto) Lymph # (Auto) [place] # (Auto) Seg Neutrophils % 87 H Lymphocytes % 5 L VBG Lactic Acid Sodium Carbon Dioxide 15 L Anion Gap 24.0 H Glucose Uric Acid Calcium Phosphorus Direct Bilirubin 0.4 H GGT 72 H AST 39 H Lactate Dehydrogenase 438 H C-Reactive Protein Total Protein Albumin Procalcitonin 10.25 H Urine Appearance Urine Protein Ur Leukocyte Esterase Urine RBC Urine WBC Urine Bacteria Urine Mucus Abs Neutrophil Control 12/11/19 12/10/19 12/10/19 04:39 21:27 20:32 WBC 33.8 H* RBC 3.86 L Hgb Hct Plt Count Neut % (Auto) 93.8 H Lymph % (Auto) 0.7 L [place] % (Auto) Lymph # (Auto) 0.25 L [place] # (Auto) 1.63 H Seg Neutrophils % Lymphocytes % VBG Lactic Acid 3.1 H Sodium Carbon Dioxide Anion Gap Glucose Uric Acid Calcium Phosphorus Direct Bilirubin GGT AST Lactate Dehydrogenase C-Reactive Protein Total Protein Albumin Procalcitonin Urine Appearance Hazy A Urine Protein 30 A Ur Leukocyte Esterase 500 A Urine RBC 9 H Urine WBC 99 H Urine Bacteria Few A Urine Mucus Few A Abs Neutrophil Control 31.65 H 12/10/19 12/10/19 20:32 20:32 WBC 3.3 L RBC Hgb Hct Plt Count 117 L Neut % (Auto) 96.3 H Lymph % (Auto) 3.4 L [place] % (Auto) 0.3 L Lymph # (Auto) 0.11 L [place] # (Auto) 0.01 L Seg Neutrophils % Lymphocytes % VBG Lactic Acid Sodium 132 L Carbon Dioxide 21 L Anion Gap Glucose 107 H Uric Acid Calcium Phosphorus Direct Bilirubin GGT AST Lactate Dehydrogenase C-Reactive Protein Total Protein Albumin Procalcitonin Urine Appearance Urine Protein Ur Leukocyte Esterase Urine RBC Urine WBC Urine Bacteria Urine Mucus Abs Neutrophil Control Meds: Medications Acetaminophen (Tylenol) 650 mg PO Q6HP PRN; Protocol PRN Reason: Per Pain Protocol/Fever > 101 Albuterol/Ipratropium (Duoneb) 3 ml NEB Q4HP PRN PRN Reason: Shortness Of Breath Docusate Sodium (Colace) 100 mg PO BID [facility] Enoxaparin Sodium (Lovenox) 30 mg SQ DAILY [facility] Fentanyl (Duragesic) 12 mcg TOPICAL ONCE ONE Stop: 12/12/19 19:39 Magnesium Sulfate (Magnesium Sulfate) 2 gm in 50 mls @ 50 mls/hr IV UD PRN PRN Reason: Magnesium </= 1.6 Piperacillin Sod/Tazobactam (Sod 2.25 gm/ Dextrose) 50 mls @ 100 mls/hr IV Q6H [facility] Last Infusion: 12/12/19 18:25 Dose: Infused Documented by: Potassium Chloride 40 meq/ (Dextrose) 520 mls @ 130 mls/hr IV UD PRN PRN Reason: Potassium < 3 Lorazepam (Ativan) 0.5 mg PO Q6HP PRN PRN Reason: ANXIETY/SEDATION Ondansetron HCl (Zofran) 4 mg IV Q4HP PRN PRN Reason: Nausea And Vomiting Potassium Chloride (Kdur) 40 meq PO UD PRN PRN Reason: Potssium is 3-3.5 Last Admin: 12/12/19 13:34 Dose: 40 meq Documented by: Potassium Chloride (Kdur) 40 meq PO UD PRN PRN Reason: Potassium < 3 Senna (Senokot) 2 tab PO DAILYP PRN PRN Reason: Constipation Sodium Chloride (Saline Flush) 10 ml IV Q8 [facility] Last Admin: 12/12/19 13:03 Dose: 10 ml Documented by: A/P Narrative A/P Narrative: 1. Septic Shock: source vs Pulm -off vasopressors 2. UTI -continue Zosyn 3. ??PNA: cxr with b/l infiltrates but pt does not have cough or other clinical signs -Blood culture showed positive for gram-negative negative bacilli -Azithromycin was discontinued -Monitor 4. chronic cough/dyspnea: Oxygen saturation good on room air 5. Hyponatremia -132. Repeat electrolytes in the morning 6. Generalized weakness/deconditioning PT OT CM 7. Bacteremia -Blood culture showed gram-negative bacilli 2 out of 2 bottles. Sensitivity pending. -Continue Zosyn *HTN/HLD: *Hypothyroidism: *Anxiety/depression: *Chronic Back pain/scoliosis: *Multiple myeloma: follows with Dr. Perry on active therapy P: -IVF -IS -Clarify home medications -pT/OT -CM for placement -ppx: Lovenox/home PPI DNR Time Spent With Patient Time: Total time spent is greater than 50% in coordination of care (as documented) at patient's floor/unit and/or counseling patient: QUALITY VTE Deep Vein Thrombosis/Pulmonary Embolism Present on Admission: No
[2019-12-12] MEDS: LORazepam 0.5 MG TABLET PO PRN (20:38)
[2019-12-12] MEDS ORDERED: NOREPINEPHRINE BITARTRATE 16 MG in 0.9 % SODIUM CHLORIDE 234 ML IV PRN (23:45)
[2019-12-13] MEDS: PIPERACILLIN SODIUM/TAZOBACTAM 2.25 GM in DEXTROSE 5% IN WATER 50 ML IV SCH ×4 (00:08→17:13)
[2019-12-13] MEDS: 0.9 % SODIUM CHLORIDE 10 ML SYRINGE IV SCH ×4 (05:43→20:36)
[2019-12-13 08:24] LABS: Basophils # (Auto) 0.01 K/mcL (0.00-0.20); Basophils % (Auto) 0.1 % (0.0-2.0); Eosinophils # (Auto) 0.05 K/mcL (0.00-0.70); Eosinophils % (Auto) 0.6 % (0.0-7.0); Hematocrit 33.1 % (36.0-48.0); Lymphocytes % (Auto) 5.5 % (15.0-49.0); Mean Cell Volume 95.4 fL (80.0-100.0); Mean Corpuscular HGB Conc 33.2 g/dL (31.0-36.0); Monocytes # (Auto) 0.91 K/mcL (0.10-0.90); Neutrophils % (Auto) 83.8 % (38.0-78.0); Platelet Count 149 K/mcL (140-440); RBC 3.47 M/mcL (4.00-5.20); Red Cell Distribution Width 12.6 % (11.5-14.5); WBC 9.1 K/mcL (4.5-11.0)
[2019-12-13] MEDS: DOCUSATE SODIUM 100 MG CAPSULE PO SCH ×2 (08:51→21:47)
[2019-12-13] MEDS: ENOXAPARIN 30 MG/0.3 ML SYRINGE SQ SCH (08:51)
[2019-12-13 08:53] LABS: ALT/SGPT 16 U/L (<40); AST/SGOT 21 U/L (<32); Albumin 2.8 gm/dL (3.2-5.2); Albumin/Globulin Ratio 1.2 (1.0-2.3); Alkaline Phosphatase 88 U/L (39-117); Bilirubin,Total 0.4 mg/dL (0.1-1.0); Blood Urea Nitrogen 6 mg/dL (8-23); Calcium 8.3 mg/dL (8.6-10.4); Carbon Dioxide 18 mmol/L (22-30); Chloride 104 mmol/L (96-108); Globulin 2.4 gm/dL (2.2-3.7); Glomerular Filtration Rate 84; Glucose 90 mg/dL (70-105); Phosphorous 2.6 mg/dL (2.5-4.5)
[2019-12-13] MEDS ORDERED: AZITHROMYCIN 500 MG in DEXTROSE 5% IN WATER 250 ML IV SCH (09:00)
--- NOTE | 2019-12-13 13:43 | Internal Med Progress Note ---
SUBJECTIVE Subjective Patient information: Note initiated : 12/13/19 at 1:42 pm Service Date, if different from initiated Date: [] Patient: Daksha Rodriguez 84 y/o F admitted on 12/11/19 for fever, SOB. Chief Complaint: [] Ms. Rodriguez is a 84 year old F Patient presents to the ED with fever and chills. She does have a cough and shortness of breath but states this is chronic and stable. In the ED she evaluated she was hypotensive initially with a fever. Lactate. She is given IV fluids with resolution of her hypotension. Source appears to be tract with UTI. ?Pulm. Patient states Monday that she had fevers and chills. She called Monday morning to oncologist because she was supposed to get "chemo" for multiple myeloma and they decided to wait on her chemo that was scheduled for Monday. She felt better on Monday she felt tired and then in the afternoon she developed fevers and chills called the ambulance. In the ER she was evaluated and work-up was concerning for urinary tract infection with sepsis and she actually required levo fed. Chest x-ray bilateral infiltrates but she denies any cough above baseline. She says she has a chronic shortness of breath and cough but she says they are no different than usual. Feels tired and weak but otherwise no other complaints. 12/11 Patient does not have any new complaints. Denies fever, chills, nausea or vomiting. Temperature 99.4 this evening White blood cells went down to 14.4 from 33.8 yesterday Platelets 131 Sodium 132 Phosphorus 2.1 Blood culture showed gram-negative bacilli 2 out of 2 bottles. Sensitivity pending. Continue Zosyn Discontinued Zithromax 12/12 Patient feels much better. Does not have any complaints. Wants to go home. Blood pressure is not controlled. I resumed her home medication amlodipine and losartan. Monitor her blood pressure. White blood cells normalized today 9.1 Sodium 132 Blood culture showed gram-negative bacilli, sensitivity pending Review of Systems: Positive as above. Denies headache/nausea/vomiting/chest or abdominal pain//diarrhea. Remaining 10 point review of system reviewed negative Constitutional Vitals: Vital Signs Temp Pulse Resp BP Pulse Ox 98.9 F 83 20 147/91 93 12/13/19 11:59 12/13/19 11:59 12/13/19 11:59 12/13/19 11:59 12/13/19 11:59 Period Temp Pulse Resp BP Sys/Pal Pulse Ox Last 24 Hr 98.1 F-99.4 F 76-88 14-20 119-176/63-91 93-98 Intake and Output 12/12/19 12/13/19 12/13/19 21:59 05:59 13:59 Intake Total 470 350 500 Output Total 450 200 Balance 20 150 500 Weight 43.091 kg Intake & Output: Intake & Output 12/12/19 12/13/19 12/13/19 21:59 05:59 13:59 Intake Total 470 350 500 Output Total 450 200 Balance 20 150 500 Weight 43.091 kg Intake: IV 50 50 100 Zosyn 2.25 gm In Dextrose 5% in 50 50 100 Water 50 ml @ 100 mls/hr IV Q6H [facility] Rx#:[id number] Oral 420 300 400 Output: Void Amount 450 200 Other: Meal Dinner Breakfast Percent of Meal Consumed 25% 100% Feeding Ability Independent Urine Appearance Clear Clear Clear Urine Color Pale Pale Pale Urine Odor Normal Normal Stool Size Moderate Stool Color Brown Stool Consistency Loose Watery Loose # Voids 1 # Bowel Movements 2 Additional findings Additional findings: General: Alert, Awake, No acute Distress Eyes/N/T: EOMI, PERRL, Head/Neck: neck supple, normocephalic atraumatic CV: RRR, No murmurs, normal s1/s2 Pulm: Clear b/l, no wheezing/rhonchi/rales Abd: soft, nontender, +BS x4 Ext: no clubbing/cyanosis/edema Neuro: Alert, no focal deficits, moves all extremities, CN 2-12 grossly intact, symmetrical strength b/l upper/lower, sensations intact b/l upper/lower Skin: warm/dry OBJ DATA Labs CBC & Chem 7: 12/13/19 05:16 12/13/19 05:16 Labs: Abnormal Lab Results 12/13/19 12/13/19 12/12/19 05:16 05:16 05:02 WBC 14.4 H RBC 3.47 L 3.51 L Hgb 11.0 L 11.5 L Hct 33.1 L 34.4 L Plt Count 131 L Neut % (Auto) 83.8 H 88.6 H Lymph % (Auto) 5.5 L 2.8 L [place] % (Auto) Lymph # (Auto) 0.50 L 0.41 L [place] # (Auto) 0.91 H 1.18 H Seg Neutrophils % Lymphocytes % VBG Lactic Acid Sodium 132 L Carbon Dioxide 18 L Anion Gap BUN 6 L Glucose Uric Acid Calcium 8.3 L Phosphorus Direct Bilirubin GGT AST Lactate Dehydrogenase C-Reactive Protein Total Protein 5.2 L Albumin 2.8 L Procalcitonin Urine Appearance Urine Protein Ur Leukocyte Esterase Urine RBC Urine WBC Urine Bacteria Urine Mucus Abs Neutrophil Control 12.75 H 12/12/19 12/11/19 12/11/19 05:02 04:39 04:39 WBC RBC Hgb Hct Plt Count Neut % (Auto) Lymph % (Auto) [place] % (Auto) Lymph # (Auto) [place] # (Auto) Seg Neutrophils % Lymphocytes % VBG Lactic Acid Sodium 132 L Carbon Dioxide 21 L Anion Gap BUN Glucose Uric Acid 2.1 L Calcium 8.0 L Phosphorus 2.1 L Direct Bilirubin GGT 44 H AST Lactate Dehydrogenase C-Reactive Protein 20.70 H Total Protein 5.1 L Albumin 2.7 L Procalcitonin 10.25 H Urine Appearance Urine Protein Ur Leukocyte Esterase Urine RBC Urine WBC Urine Bacteria Urine Mucus Abs Neutrophil Control 12/11/19 12/11/19 12/11/19 04:39 04:39 04:39 WBC 33.8 H* RBC 3.86 L Hgb Hct Plt Count Neut % (Auto) 93.8 H Lymph % (Auto) 0.7 L [place] % (Auto) Lymph # (Auto) 0.25 L [place] # (Auto) 1.63 H Seg Neutrophils % 87 H Lymphocytes % 5 L VBG Lactic Acid Sodium Carbon Dioxide 15 L Anion Gap 24.0 H BUN Glucose Uric Acid Calcium Phosphorus Direct Bilirubin 0.4 H GGT 72 H AST 39 H Lactate Dehydrogenase 438 H C-Reactive Protein Total Protein Albumin Procalcitonin Urine Appearance Urine Protein Ur Leukocyte Esterase Urine RBC Urine WBC Urine Bacteria Urine Mucus Abs Neutrophil Control 31.65 H 12/10/19 12/10/19 12/10/19 21:27 20:32 20:32 WBC RBC Hgb Hct Plt Count Neut % (Auto) Lymph % (Auto) [place] % (Auto) Lymph # (Auto) [place] # (Auto) Seg Neutrophils % Lymphocytes % VBG Lactic Acid 3.1 H Sodium 132 L Carbon Dioxide 21 L Anion Gap BUN Glucose 107 H Uric Acid Calcium Phosphorus Direct Bilirubin GGT AST Lactate Dehydrogenase C-Reactive Protein Total Protein Albumin Procalcitonin Urine Appearance Hazy A Urine Protein 30 A Ur Leukocyte Esterase 500 A Urine RBC 9 H Urine WBC 99 H Urine Bacteria Few A Urine Mucus Few A Abs Neutrophil Control 12/10/19 20:32 WBC 3.3 L RBC Hgb Hct Plt Count 117 L Neut % (Auto) 96.3 H Lymph % (Auto) 3.4 L [place] % (Auto) 0.3 L Lymph # (Auto) 0.11 L [place] # (Auto) 0.01 L Seg Neutrophils % Lymphocytes % VBG Lactic Acid Sodium Carbon Dioxide Anion Gap BUN Glucose Uric Acid Calcium Phosphorus Direct Bilirubin GGT AST Lactate Dehydrogenase C-Reactive Protein Total Protein Albumin Procalcitonin Urine Appearance Urine Protein Ur Leukocyte Esterase Urine RBC Urine WBC Urine Bacteria Urine Mucus Abs Neutrophil Control Meds: Medications Acetaminophen (Tylenol) 650 mg PO Q6HP PRN; Protocol PRN Reason: Per Pain Protocol/Fever > 101 Albuterol/Ipratropium (Duoneb) 3 ml NEB Q4HP PRN PRN Reason: Shortness Of Breath Docusate Sodium (Colace) 100 mg PO BID [facility] Last Admin: 12/13/19 08:51 Dose: 100 mg Documented by: Enoxaparin Sodium (Lovenox) 30 mg SQ DAILY [facility] Last Admin: 12/13/19 08:51 Dose: 30 mg Documented by: Magnesium Sulfate (Magnesium Sulfate) 2 gm in 50 mls @ 50 mls/hr IV UD PRN PRN Reason: Magnesium </= 1.6 Piperacillin Sod/Tazobactam (Sod 2.25 gm/ Dextrose) 50 mls @ 100 mls/hr IV Q6H [facility] Last Infusion: 12/13/19 12:42 Dose: Infused Documented by: Potassium Chloride 40 meq/ (Dextrose) 520 mls @ 130 mls/hr IV UD PRN PRN Reason: Potassium < 3 Lorazepam (Ativan) 0.5 mg PO Q6HP PRN PRN Reason: ANXIETY/SEDATION Last Admin: 12/12/19 20:38 Dose: 0.5 mg Documented by: Ondansetron HCl (Zofran) 4 mg IV Q4HP PRN PRN Reason: Nausea And Vomiting Potassium Chloride (Kdur) 40 meq PO UD PRN PRN Reason: Potssium is 3-3.5 Last Admin: 12/12/19 13:34 Dose: 40 meq Documented by: Potassium Chloride (Kdur) 40 meq PO UD PRN PRN Reason: Potassium < 3 Senna (Senokot) 2 tab PO DAILYP PRN PRN Reason: Constipation Sodium Chloride (Saline Flush) 10 ml IV Q8 [facility] Last Admin: 12/13/19 05:43 Dose: 10 ml Documented by: A/P Narrative A/P Narrative: 1. Septic Shock: source vs Pulm -off vasopressors 2. UTI -continue Zosyn 3. ??PNA: cxr with b/l infiltrates but pt does not have cough or other clinical signs -Blood culture showed positive for gram-negative negative bacilli, sensitivity pending -Azithromycin was discontinued -Monitor 4. chronic cough/dyspnea: Oxygen saturation good on room air 5. Hyponatremia -132. Repeat electrolytes in the morning 6. Generalized weakness/deconditioning PT OT CM 7. Bacteremia -Blood culture showed gram-negative bacilli 2 out of 2 bottles. Sensitivity pending. -Continue Zosyn *HTN/HLD: -Resumed home medication amlodipine 10 mg daily and losartan 100 mg daily *Hypothyroidism: *Anxiety/depression: -Resumed home medication Ativan *Chronic Back pain/scoliosis: *Multiple myeloma: follows with Dr. Perry on active therapy P: -IVF -IS -Clarify home medications -pT/OT -CM for placement -ppx: Lovenox/home PPI DNR Time Spent With Patient Time: Total time spent is greater than 50% in coordination of care (as documented) at patient's floor/unit and/or counseling patient: QUALITY VTE Deep Vein Thrombosis/Pulmonary Embolism Present on Admission: No
[2019-12-13] MEDS ORDERED: LORazepam 0.5 MG TABLET PO PRN (13:44)
--- NOTE | 2019-12-13 17:11 | Internal Medicine Consult Note ---
HPI Data of Consult Patient: known to practice within the last 3 years Consult date: 12/13/19 Primary Care Provider: Omer Malagon Consult Narrative History of present illness: 84 y.o. female with MULTIPLE MYELOMA and frequent UTI, grade 4 cystocele now managed with a ring pessary from her metal tank erector, admitted with sepsis from a UTI and she needed pressors. she is now much improved and back to a regular floor bed. She is on no vaginal estrogen. she had a recent renal US this year that was without hydronephrosis. She had no symptoms of a UTi prior to admission. currently feels well, no fevers, no chills, no nausea, no emesis, no dysuria, no hematuria. pessary is comfortable and in good position and is due to be cleaned in one month. is typically cleaned every 3-4 months in her gynes office. cc:: CC: Jagjit Mooney Constitutional Constitutional: Absent chills, fever(s) and lethargy Cardiovascular Cardiovascular: Absent chest pain, chest pain at rest and chest pain with activity Respiratory Respiratory: Absent cough, dyspnea on exertion and wheezing Gastrointestinal Gastrointestinal: Absent change in bowel habits, nausea and vomiting Genitourinary Genitourinary: Present as per HPI Musculoskeletal Musculoskeletal: Present limited range of motion (chronic scoliosis ); Absent muscle cramps and tingling Integumentary Integumentary: Present new lesions (duoderm patch on back ) Neurological Neurological: Absent behavioral changes, confusion and tingling Psychiatric Psychiatric: Absent confusion, difficulty concentrating and hallucinations Endocrine Endocrine: Absent polydipsia, polyphagia and polyuria Hematologic/Lymphatic Hematologic/Lymphatic: Present easy bruising; Absent easy bleeding PFSH PFSH All Active Problems (Updated 12/13/19 @ 17:07 by Romeo Mora MD) Atrophic vaginitis (Acute) Acute exacerbation of chronic obstructive airways disease (Acute) Influenza (Acute) Urinary tract infection (Acute) Sepsis (Acute) Macular retinal edema (Chronic) Excess skin of eyelid (Chronic) Scoliosis (Chronic) Disorder of bladder (Chronic) Lower gastrointestinal hemorrhage (Acute) C. 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 Moris Jamison Disorder of bladder (Chronic) due to female genital prolapse Excess skin of eyelid (Chronic) GI bleed (Resolved) Hyperlipidemia (Chronic) Hypertension, essential (Chronic) Hypothyroidism (acquired) (Chronic) Macular puckering of retina (Chronic) 10/11/13 Dr. 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 Moris Jamison Ptosis of eyelid (Resolved) 10/11/13- Dr. 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 Moris Jamison Surgical History History of esophagogastroduodenoscopy (EGD) (Chronic 02/02/17) 12/01/16 Hx of cataract surgery (Resolved) Hx of hysterectomy (Resolved) Family History (Updated 01/16/19 @ 11:34 by Kim Hernandez RN) Father Acute myocardial infarction Mother Malignant neoplasm of lung Other Diabetes mellitus HTN (hypertension) Social History (Updated 01/16/19 @ 12:01 by Kj Estrella MD) household members: alone occupational status: unemployed smoking status: Never smoker alcohol intake frequency: holiday/special occasion only MEDS/ALLERGIES Home Medications and Allergies Home Medications Medication Instructions Recorded Confirmed Type acyclovir 400 mg tablet 400 mg PO BID 12/09/16 12/11/19 History amlodipine 10 mg tablet 10 mg PO QDAY #30 tab 03/27/17 12/11/19 Rx losartan 100 mg tablet 100 mg PO DAILY #90 tab 11/13/17 12/11/19 Rx lorazepam 0.5 mg tablet 0.5 mg PO QID PRN #180 tab 11/17/17 12/11/19 Rx levothyroxine 50 mcg tablet 50 mcg PO QDAY #90 tab 12/15/17 12/11/19 Rx fentanyl 12 mcg/hr transdermal 1 patch TRANSDERMA Q48H #15 patch 02/21/18 12/11/19 Rx patch dexamethasone 4 mg tablet 15 mg PO QDAY tab 01/16/19 12/11/19 History pravastatin 40 mg tablet 40 mg PO HS 01/16/19 12/11/19 History metoclopramide HCl 5 mg PO TIDCC 12/11/19 12/11/19 History omeprazole 40 mg PO QDAY 12/11/19 12/11/19 History Allergies Allergy/AdvReac Type Severity Reaction Status Date / Time Nortriptyline AdvReac Intermediate Fatigued Verified 12/13/19 06:45 pantoprazole AdvReac Intermediate swelling Verified 12/13/19 06:45 cefdinir AdvReac Mild nausea Verified 12/11/19 06:40 sulfamethoxazole AdvReac Mild nausea Verified 12/11/19 06:40 [From Bactrim] trimethoprim [From Bactrim] AdvReac Mild nausea Verified 12/11/19 06:40 EXAM Constitutional Vitals: Temp Pulse Resp BP Pulse Ox 98.4 F 79 20 147/90 94 12/13/19 16:00 12/13/19 16:00 12/13/19 16:00 12/13/19 16:00 12/13/19 16:00 General appearance: average body habitus, cooperative and no acute distress Head Head exam: Present atraumatic, normal inspection and normocephalic Eye Eye exam: Present normal appearance; Absent conjunctival injection and scleral icterus Respiratory Respiratory exam: Absent respiratory distress, stridor and wheezes Cardiovascular Cardiovascular exam: Present normal rate and rhythm; Absent bradycardia GI/Abdominal GI/Abdominal exam: Present soft; Absent distended, firm, guarding, rebound, rigid and tenderness Speculum exam: Absent vaginal bleeding and vaginal discharge Additional comments: atrophic vaginal canal, ring pessary with central support in good position. no bleeding nor drainage nor residual prolapse. Neurological Exam Neurological exam: Present alert and oriented X3 Psychiatric Psychiatric exam: Present normal affect and normal mood; Absent agitated DATA Data Completed and Pending Labs: Labs from last 24 hours 12/13/19 12/13/19 05:16 05:16 WBC 9.1 RBC 3.47 L Hgb 11.0 L Hct 33.1 L MCV 95.4 MCH 31.7 MCHC 33.2 RDW 12.6 Plt Count 149 MPV 10.0 Neut % (Auto) 83.8 H Lymph % (Auto) 5.5 L [place] % (Auto) 10.0 Eos % (Auto) 0.6 Baso % (Auto) 0.1 Lymph # (Auto) 0.50 L [place] # (Auto) 0.91 H Eos # (Auto) 0.05 Baso # (Auto) 0.01 Absolute Neutrophils 7.61 Sodium 132 L Potassium 3.7 Chloride 104 Carbon Dioxide 18 L Anion Gap 10.0 BUN 6 L Creatinine 0.6 GFR Calculation 84 Glucose 90 Calcium 8.3 L Phosphorus 2.6 Total Bilirubin 0.4 AST 21 ALT 16 Alkaline Phosphatase 88 Total Protein 5.2 L Albumin 2.8 L Globulin 2.4 Albumin/Globulin Ratio 1.2 Preliminary micro results at discharge 12/11/19 15:38 Blood Culture - Preliminary Blood 12/11/19 15:34 Blood Culture - Preliminary Blood 12/10/19 20:32 Blood Culture - Preliminary Blood Gram negative bacillus 12/10/19 20:26 Blood Culture - Preliminary Blood Gram negative bacillus A/P Assessment and plan (1) Urinary tract infection: Status: Acute Qualifiers: Urinary tract infection type: acute pyelonephritis Qualified Code(s): N10 - Acute pyelonephritis (2) Female bladder prolapse, acquired: Status: Chronic (3) Atrophic vaginitis: Status: Acute Narrative A/P Narrative: 1) frequent UTI: -her prolapse is well reduced with the pessary -most likely cause her frequent UTI is vaginal atrophy -vaginal estrogen is highly effective at preventing post menopausal UTI and carries little risk as there is minimal to no system absorption with correction use -we will coordinate with her family (she gave verbal permission for me to share her care and health information with her grandaughDeleon) to order vaginal estrogen cream (either estrace or premarin or compounded ... which ever is cheaper) -she will follwo up outpatient for pessary check and instruction on vaginal insertion of the estrogen cream -it takes 8 weeks to be effective but then can be very preventative -will await her final urine culture - she may do well to be placed on low dose antibiotic suppression for 8 weeks until the estrogen in effective - if there is an appropriate sensitivity Time Spent With Patient Time: Total time spent is greater than 50% in coordination of care (as doc umented) at patient's floor/unit and/or counseling patient: Total time spent with greater than 50% in coordination of care (as documented) at patient's floor/unit and/or counseling patient:: 15 - 24 minutes
[2019-12-13] MEDS: METOCLOPRAMIDE 10 MG TABLET PO SCH (17:13)
[2019-12-13] MEDS: ACYCLOVIR 400 MG TABLET PO SCH (20:34)
[2019-12-13] MEDS: LORazepam 0.5 MG TABLET PO PRN (20:34)
[2019-12-13] MEDS ORDERED: ATORVASTATIN 10 MG TABLET PO SCH (21:00)
[2019-12-14] MEDS: PIPERACILLIN SODIUM/TAZOBACTAM 2.25 GM in DEXTROSE 5% IN WATER 50 ML IV SCH ×3 (00:12→11:59)
[2019-12-14] MEDS: 0.9 % SODIUM CHLORIDE 10 ML SYRINGE IV SCH ×2 (06:41→12:00)
[2019-12-14 07:12] LABS: Basophils # (Auto) 0.01 K/mcL (0.00-0.20); Basophils % (Auto) 0.1 % (0.0-2.0); Eosinophils # (Auto) 0.07 K/mcL (0.00-0.70); Eosinophils % (Auto) 0.9 % (0.0-7.0); Hematocrit 35.5 % (36.0-48.0); Hemoglobin 11.9 g/dL (12.0-15.0); Lymphocytes # (Auto) 0.55 K/mcL (1.50-4.80); Lymphocytes % (Auto) 7.3 % (15.0-49.0); Mean Cell Volume 96.7 fL (80.0-100.0); Mean Corpuscular HGB Conc 33.5 g/dL (31.0-36.0); Mean Platelet Volume 9.7 fL (7.4-10.4); Monocytes # (Auto) 0.86 K/mcL (0.10-0.90); Monocytes % (Auto) 11.5 % (1.0-12.0); Neutrophils % (Auto) 80.2 % (38.0-78.0); Platelet Count 163 K/mcL (140-440); RBC 3.67 M/mcL (4.00-5.20); Red Cell Distribution Width 12.6 % (11.5-14.5); WBC 7.5 K/mcL (4.5-11.0)
[2019-12-14] MEDS ORDERED: OMEPRAZOLE 20 MG CAPSULE PO SCH (07:30)
[2019-12-14] MEDS ORDERED: LEVOTHYROXINE 50 MCG TABLET PO SCH (07:30)
[2019-12-14] MEDS: METOCLOPRAMIDE 10 MG TABLET PO SCH ×2 (07:45→11:59)
[2019-12-14 07:53] LABS: ALT/SGPT 18 U/L (<40); AST/SGOT 19 U/L (<32); Albumin 3.2 gm/dL (3.2-5.2); Albumin/Globulin Ratio 1.2 (1.0-2.3); Alkaline Phosphatase 88 U/L (39-117); Bilirubin,Total 0.5 mg/dL (0.1-1.0); Blood Urea Nitrogen 6 mg/dL (8-23); Calcium 8.9 mg/dL (8.6-10.4); Carbon Dioxide 24 mmol/L (22-30); Chloride 101 mmol/L (96-108); Globulin 2.6 gm/dL (2.2-3.7); Glomerular Filtration Rate 80; Glucose 93 mg/dL (70-105)
[2019-12-14] MEDS: DOCUSATE SODIUM 100 MG CAPSULE PO SCH (08:31)
[2019-12-14] MEDS ORDERED: LOSARTAN 50 MG TABLET PO SCH (09:00)
[2019-12-14] MEDS ORDERED: amLODIPine 10 MG TABLET PO SCH (09:00)
[2019-12-14] MEDS: ACYCLOVIR 400 MG TABLET PO SCH (09:29)
[2019-12-14] MEDS: ENOXAPARIN 30 MG/0.3 ML SYRINGE SQ SCH (09:29)
--- NOTE | 2019-12-14 11:30 | Discharge Summary ---
Discharge Provider Provider Patient information: Note initiated : 12/14/19 at 11:23 am Service Date, if different from initiated Date: [] Patient: Daksha Rodriguez 84 y/o F admitted on 12/11/19 for fever, SOB. Chief Complaint: [] Date of admission: 12/11/19 00:39 Discharge date: 12/14/19 Primary care physician: Omer Malagon Consults: 12/10/19 Consult to Physician [CONS] Stat Comment: Consulting Provider: Jagjit Mooney Reason For Exam: Physician to Consult 12/13/19 12:38 Consult to Physician [CONS] Routine Comment: Consulting Provider: Romeo Mora Reason For Exam: Physician to Consult Discharge Meds Discharge Medications Home Medications acyclovir 400 mg tablet 400 mg PO BID 12/09/16 [History Confirmed 12/11/19 Last Taken 01/17/19] amlodipine 10 mg tablet 10 mg PO QDAY #30 tab 03/27/17 [Rx Confirmed 12/11/19 Last Taken 01/17/19] losartan 100 mg tablet 100 mg PO DAILY #90 tab 11/13/17 [Rx Confirmed 12/11/19 Last Taken 01/17/19] lorazepam 0.5 mg tablet 0.5 mg PO QID PRN #180 tab 11/17/17 [Rx Confirmed 12/11/19 Last Taken 01/17/19] levothyroxine 50 mcg tablet 50 mcg PO QDAY #90 tab 12/15/17 [Rx Confirmed 12/11/19 Last Taken 01/17/19] fentanyl 12 mcg/hr transdermal patch 1 patch TRANSDERMA Q48H #15 patch 02/21/18 [Rx Confirmed 12/11/19 Last Taken 01/17/19] dexamethasone 4 mg tablet 15 mg PO QDAY tab 01/16/19 [History Confirmed 12/11/19 Last Taken 01/17/19] pravastatin 40 mg tablet 40 mg PO HS 01/16/19 [History Confirmed 12/11/19 Last Taken 01/17/19] omeprazole 40 mg PO QDAY 12/11/19 [History Confirmed 12/11/19 Last Taken Unknown] cephalexin [Keflex] 500 mg PO Q8H #42 cap 12/14/19 [Rx Last Taken Unknown] COURSE Hospital Course Hospital course: 1. Septic Shock: source resolved 2. UTI -continue Zosyn. will discharge her on keflex. 3. ??PNA: cxr with b/l infiltrates but pt does not have cough or other clinical signs -Blood culture Ecoli -Azithromycin was discontinued -Monitor 4. chronic cough/dyspnea: Oxygen saturation good on room air 5. Hyponatremia -133. Repeat electrolytes in 3 days 6. Generalized weakness/deconditioning PT OT 7. Bacteremia -Blood culture showed E. coli 2 out of 2 bottles. Sensitivity for antibiotics tested. -Discontinued Zosyn and will start Keflex for 2 weeks. Follow with PCP and ID. *HTN/HLD: -Resumed home medication amlodipine 10 mg daily and losartan 100 mg daily *Hypothyroidism: *Anxiety/depression: -Resumed home medication Ativan *Chronic Back pain/scoliosis: *Multiple myeloma: follows with Dr. Perry on active therapy Ms. Rodriguez is a 84 year old F Patient presents to the ED with fever and chills. She does have a cough and shortness of breath but states this is chronic and stable. In the ED she evaluated she was hypotensive initially with a fever. Lactate. She is given IV fluids with resolution of her hypotension. Source appears to be tract with UTI. ?Pulm. Patient states Monday that she had fevers and chills. She called Monday morning to oncologist because she was supposed to get "chemo" for multiple myeloma and they decided to wait on her chemo that was scheduled for Monday. She felt better on Monday she felt tired and then in the afternoon she developed fevers and chills called the ambulance. In the ER she was evaluated and work-up was concerning for urinary tract infection with sepsis and she actually required levo fed. Chest x-ray bilateral infiltrates but she denies any cough above baseline. She says she has a chronic shortness of breath and cough but she says they are no different than usual. Feels tired and weak but otherwise no other complaints. 12/11 Patient does not have any new complaints. Denies fever, chills, nausea or vomiting. Temperature 99.4 this evening White blood cells went down to 14.4 from 33.8 yesterday Platelets 131 Sodium 132 Phosphorus 2.1 Blood culture showed gram-negative bacilli 2 out of 2 bottles. Sensitivity pending. Continue Zosyn Discontinued Zithromax 12/12 Patient feels much better. Does not have any complaints. Wants to go home. Blood pressure is not controlled. I resumed her home medication amlodipine and losartan. Monitor her blood pressure. White blood cells normalized today 9.1 Sodium 132 Blood culture showed gram-negative bacilli, sensitivity pending 12/13 Patient feels great. Does not have any complaints. Denies fever, chills, headache, nausea, vomiting, or dysuria. Blood pressure is high at times. Her home blood pressure medications was just resumed yesterday. Continue to monitor blood pressure. Other vital signs are stable and acceptable. Patient can walk around. She refused SNF or home health. She would like to go to sister's house for short time and then go home. She has a son in [place]. She is pretty independent. She also told me that her sister and her son can take boot care of her. Sodium 133 today. Blood culture showed E. coli from 2 out of 2 bottles (spoke to David at microbiology lab who told me that both bottles grew same E. coli), which are sensitive to all antibiotics tested (refer to culture report by fax in her chart). She has been treated with Zosyn in the hospital. I will discontinue Zosyn and discharged her on Keflex for 2 weeks. [employer] okay to sister's house. I will discharge this patient today. She needs to see PCP and ID. She needs to repeat CBC and electrolytes in 3 days. As per urology Dr. Mora, she may need low dose of antibiotics for 8 weeks to prevent UII before the effects of her vaginal estrogen kicks in. Call PCP for medical issues. Discharge diagnosis: Septic Shock, UTI Time Spent with Patient Time attestation: Total time spent providing and/or coordinating discharge services: EXAM Constitutional Vitals: Temp Pulse Resp BP Pulse Ox 98.8 F 81 16 160/90 95 12/14/19 07:50 12/14/19 07:50 12/14/19 07:50 12/14/19 07:50 12/14/19 07:50 Additional findings Additional findings: General: Alert, Awake, No acute Distress Eyes/N/T: EOMI, PERRL, Head/Neck: neck supple, normocephalic atraumatic CV: RRR, No murmurs, normal s1/s2 Pulm: Clear b/l, no wheezing/rhonchi/rales Abd: soft, nontender, +BS x4 Ext: no clubbing/cyanosis/edema Neuro: Alert, no focal deficits, moves all extremities, CN 2-12 grossly intact, symmetrical strength b/l upper/lower, sensations intact b/l upper/lower Skin: warm/dry Discharge Data Data Completed and Pending Labs on day of discharge: Labs from last 24 hours 12/14/19 12/14/19 05:22 05:22 WBC 7.5 RBC 3.67 L Hgb 11.9 L Hct 35.5 L MCV 96.7 MCH 32.4 MCHC 33.5 RDW 12.6 Plt Count 163 MPV 9.7 Neut % (Auto) 80.2 H Lymph % (Auto) 7.3 L Stearns % (Auto) 11.5 Eos % (Auto) 0.9 Baso % (Auto) 0.1 Lymph # (Auto) 0.55 L Stearns # (Auto) 0.86 Eos # (Auto) 0.07 Baso # (Auto) 0.01 Absolute Neutrophils 6.02 Sodium 133 Potassium 3.5 Chloride 101 Carbon Dioxide 24 Anion Gap 8.0 BUN 6 L Creatinine 0.7 GFR Calculation 80 Glucose 93 Calcium 8.9 Total Bilirubin 0.5 AST 19 ALT 18 Alkaline Phosphatase 88 Total Protein 5.8 L Albumin 3.2 Globulin 2.6 Albumin/Globulin Ratio 1.2 Preliminary micro results at discharge 12/11/19 15:38 Blood Culture - Preliminary Blood 12/11/19 15:34 Blood Culture - Preliminary Blood 12/10/19 20:26 Blood Culture - Preliminary Blood Gram negative bacillus Discharge Plan Patient/Caregiver Discharge Instructions Activity: increase activity as tolerated Diet: Regular Diet Activity Restrictions/Additional Instructions: to take Keflex for 2 weeks. to see PCP and Infectious disease. to repeat CBC and electrolytes in 3 days. to need low dose of antibiotics for 8 weeks to prevent UII to Call PCP for medical issues. Prescriptions: New cephalexin [Keflex] 500 mg capsule 500 mg PO Q8H Qty: 42 RF: 0 Continued losartan 100 mg tablet 100 mg PO DAILY Qty: 90 RF: 3 lorazepam 0.5 mg tablet 0.5 mg PO QID PRN (Reason: anxiety) Qty: 180 RF: 5 levothyroxine 50 mcg tablet 50 mcg PO QDAY Qty: 90 RF: 3 fentanyl 12 mcg/hr patch 72 hour 1 patch TRANSDERMA Q48H Qty: 15 RF: 0 acyclovir 400 mg tablet 400 mg PO BID RF: 0 dexamethasone 4 mg tablet 15 mg PO QDAY RF: 0 amlodipine 10 mg tablet 10 mg PO QDAY Qty: 30 RF: 11 omeprazole 40 mg Capsule,Delayed Release(Dr/Ec) 40 mg PO QDAY RF: 0 pravastatin 40 mg tablet 40 mg PO HS RF: 0 Discontinued metoclopramide HCl 5 mg Tablet 5 mg PO TIDCC RF: 0 Other Ambulatory Orders: Complete Blood Count (Routine) Timeframe: 3 Days Facility: [facility] - Location: Laboratory Ordered By: Mary Donaldson Comprehensive Metabolic Panel (Routine) Timeframe: 3 Days Facility: [facility] - Location: Laboratory Ordered By: Mary Donaldson Magnesium (Routine) Timeframe: 3 Days Facility: [facility] - Location: Laboratory Ordered By: Mary Donaldson Phosphorous (Routine) Timeframe: 3 Days Facility: [facility] - Location: Laboratory Ordered By: Mary Donaldson Follow Up Plan Follow up with: Unknown [Outside] (follow with ID within one week. ) Omer Malagon MD [Primary Care Provider] - (in 3 days) Patient Disposition: Home, Self-Care Discharge Orders: Discharge Order (Routine); Ordered 12/14/19 Ordered By: Mary Donaldson QUALITY VTE Deep Vein Thrombosis/Pulmonary Embolism Present on Admission: No
== END 2019-12-14 13:30 | disposition home or self-care (01) | DRG 871 ==
LOC: ED 19:23 → ICU 12-11 00:39 → MEDSUR 12-12 16:24
PROVIDERS: ADMIT Internal Medicine; ATTEND Internal Medicine